=== PATIENT | male | born 1985 | race Hispanic/Latino ===

== ENCOUNTER 2021-08-22 18:35 | Observation (INO) | payer OTHER, SELFPAY ==
[2021-08-22] VITALS (10 sets, daily range): BP systolic 119–136; BP diastolic 72–82; PULSE 68–84; RESP 15–19; TEMP 36.4–37; O2SAT 96–100; BMI 28.2; BMI 28.6
--- NOTE | 2021-08-22 | DI.ECHO.S_ITS ---
[facility] +---------+ : : [address] : : : [place], [place] : : : : [id number] : : : : Phone: [phone]+ Echocardiogram Report + + :Name: PREM COTTON Study Date: 08/23/2021 Height: 74 in : :[facility] ReadingLocation: Weight: 220 lb : : Gender: Male BSA: 2.3 m2 : :: 1985 Age: 36 yrs BP: 136/78 mmHg: :Reason For Study: ATRIAL FIBRILLATION : :Ordering Physician: Kristyn OLSENformed By: Radha Cat : :Referring: ERNESTINE OLSEN : + + Interpretation Summary 1) Normal left ventricular thickness, size, wall motion, and systolic function (EF 55-60%). 2) Upper normal right ventricular size with normal function. 3) No significant valvular abnormalities. 4) No prior Echo available for comparison. Procedure: A two-dimensional transthoracic echocardiogram with color flow and Doppler was performed. The study quality was technically adequate. There is no prior echocardiogram noted for this patient. The patient was in sinus rhythm with heart rates between 59-68 bpm during the exam. Left Ventricle: The left ventricle is normal in size and wall thickness. The ejection fraction is estimated to be 55-60%. Left ventricular systolic function appears normal without focal wall motion abnormalities. Right Ventricle: The right ventricle is at the upper limits of normal in size. The right ventricular systolic function is normal. Atria: The left atrial size is normal. Right atrial size is normal. There is no Doppler evidence for an interatrial shunt. Mitral Valve: The mitral valve is normal in structure and function. There is trace mitral regurgitation. Aortic Valve: The aortic valve is trileaflet. The aortic valve opens well. There is no aortic valve stenosis. No aortic regurgitation is present. Tricuspid Valve: The tricuspid valve is normal in structure and function. No tricuspid regurgitation. Pulmonary artery pressures cannot be estimated because of the lack of a measurable TR jet velocity. Pulmonic Valve: The pulmonic valve is not well seen, but is grossly normal. There is no pulmonic valvular regurgitation. Great Vessels: The aortic root is normal size. The dimensions of the ascending aorta are normal. The inferior vena cava was not well visualized. Pericardium/ Pleura There is no pericardial effusion. There is no pleural effusion. MMode/2D Measurements & Calculations LVIDd: 4.9 cm LVOT diam: 2.5 cm LVIDs: 3.6 cm Ao root diam: 3.2 cm FS: 26.9 % asc Aorta Diam: 3.2 cm IVSd: 0.85 cm Ao Arch Diam (Prox Trans): 3.0 cm LVPWd: 0.71 cm LV mays. diameter/BSA (cm/m^2): 2.2 LV sys. diameter/BSA (cm/m^2): 1.6 LA A2 area: 19.2 cm2 RA long axis: 5.4 cm LA A4 area: 17.6 cm2 RA area: 15.8 cm2 LA length (vol): 5.4 cm RA vol: 39.6 ml LA vol: 53.0 ml RA : 17.5 ml/m2 LA vol index: 23.4 ml/m2 RVD1 (basal): 4.0 cm TAPSE: 2.0 cm Doppler Measurements & Calculations Ao V2 max: 98.9 cm/sec LVOT Max Naren: 82.6 cm/sec Ao V2 mean: 69.7 cm/sec LV V1 max P.7 mmHg Ao max P.9 mmHg LV V1 VTI: 15.9 cm Ao mean P.2 mmHg JANELLE(I,D): 3.6 cm2 Ao V2 VTI: 21.0 cm JANELLE(V,D): 4.0 cm2 sev ratio: 0.76 JANELLE indexed to BSA (cm^2/m^2): 1.6 MV E max naren: 64.7 cm/sec PA V2 max: 87.9 cm/sec MV A max naren: 44.1 cm/sec PA V2 mean: 61.8 cm/sec MV E/A: 1.5 PA mean P.7 mmHg Med Peak E' Naren: 8.7 cm/sec PA pr(Accel): 24.2 mmHg E/E' med: 7.5 Lat Peak E' Naren: 10.7 cm/sec E/E' lat: 6.0 E/e' average: 6.8 MV dec time: 0.20 sec SV(LVOT): 75.7 ml Reading Physician:09:33 AM
--- NOTE | 2021-08-22 18:42 | DI.RAD.S_ITS ---
PROCEDURE: XR CHEST 1V INDICATIONS: syncope, new onset AFib TECHNIQUE: One view of the chest was acquired. COMPARISON: None. FINDINGS: Surgical changes and devices: None. Lungs and pleura: No consolidation, pleural effusions or pneumothorax. Mediastinum: Mediastinal contours appear normal. Heart size is normal. Bones and chest wall: No suspicious bony lesions. Overlying soft tissues appear unremarkable. IMPRESSION: No acute cardiopulmonary abnormality. Dictated by: Jarett Jimenez M.D. on 08/22/2021 at 19:42 Approved by: Jarett Jimenez M.D. on 08/22/2021 at 19:42
--- NOTE | 2021-08-22 18:45 | PC.NURSE ---
pt was sitting in a chair when he felt a zamarripa of dizziness the dizziness increased in severity then the next thing the pt remembers is waking up on the floor with everyone standing around him, pt has never had this happen before and has not been sick or around anyone ill
--- NOTE | 2021-08-22 18:49 | ED_ITS ---
HPI - Chest Pain General Chief Complaint: Syncope Stated Complaint: syncope seizure Time Seen by Provider: 08/22/21 18:41 Source: patient Mode of arrival: EMS Limitations: no limitations History of Present Illness HPI narrative: 36M nonsmoker with noncontributory medical history presents with [facility] for evaluation of a syncopal episode just prior to arrival. He had been in his normal state of health and denies any new medications or dietary change. He was getting his hair cut when he started feeling a bit flushed and lightheaded, he asked for a glass of water and next thing he knew he woke up on the ground surrounded by his friends. He had no seizure-type activity, no shaking or twitching. He denies any recent trauma or injury and has had no fever or chills. He denies any recent nausea, vomiting or diarrhea. He has had no recent travel. He denies any history of the same. Medics on scene no an EKG demonstrating a rapid atrial fibrillation which had returned to normal sinus rhythm prior to his arrival. Related Data Home Medications Medication Instructions Recorded Confirmed No Known Home Medications 08/22/21 08/22/21 Allergies Allergy/AdvReac Type Severity Reaction Status Date / Time No Known Drug Allergies Allergy Verified 08/22/21 18:46 Review of Systems Review of Systems Narrative: GENERAL: Denies chills, fatigue, malaise, fever, sweats. HEENT: Denies sinus pain, ear pain, sore throat, difficulty swallowing, dizziness. RESPIRATORY: Denies dyspnea, cough, wheezing, hemoptysis, sputum. CARDIOVASCULAR: See HPI GASTROINTESTINAL: Denies nausea, vomiting, abdominal pain, diarrhea, c onstipation, melena. : Denies dysuria, frequency, incontinence, hematuria, urinary retention. MUSCULOSKELETAL: denies weakness, joint pain, or bony pain SKIN: Denies rash, skin lesions, or other NEUROLOGIC: Denies weakness, headache, numbness, change in speech, confusion, seizures, incoordination. PSYCHIATRIC: No concerning psychosocial issues. 12 point review of systems is negative except for those stated above Patient History Surgical History (Updated 08/22/21 @ 21:35 by SHAW Olmstead) No history of previous surgery Family History (Updated 08/22/21 @ 21:35 by SHAW Olmstead) Father Prostate cancer Social History household members: spouse Smoking Status: Never smoker Smoking Status: Never smoker alcohol intake frequency: holidays/special occasions only Substance Use Type: does not use Exam Narrative Exam Narrative: GENERAL: [36 year old patient appears stated age. Well-developed patient, in mild distress. HEAD: Atraumatic. Normocephalic. EYES: Pupils equal round and reactive. Extraocular motions intact. No scleral icterus. No injection or drainage. ENT: Nose without bleeding, purulent drainage. Throat without erythema, tonsillar hypertrophy or exudate. Airway patent. NECK: Trachea midline. Non tender CARDIOVASCULAR: Regular rate and rhythm without murmurs, gallops, or rubs. RESPIRATORY: Clear to auscultation. Breath sounds equal bilaterally. No wheezes, rales, or rhonchi. GASTROINTESTINAL: Abdomen soft, non-tender, nondistended. EXTREMITIES: No edema or joint tenderness. BACK: Nontender without deformity or crepitance. No flank tenderness. NEURO: AOx3. SKIN: No rash or erythema of visible areas Initial Vital Signs Initial Vital Signs: Vital Signs Temperature 97.6 F 08/22/21 18:42 Pulse Rate 74 08/22/21 18:42 Respiratory Rate 16 08/22/21 18:42 Blood Pressure 129/79 08/22/21 18:42 Pulse Oximetry 100 08/22/21 18:42 Course Orders Ordered: ED Orders 08/22/21 20:10 COVID19 - ADMIT (TEXTILE TECHNICAL OFFICER swab/PCR) Stat 08/22/21 22:15 Urine Drug Screen, Rapid Stat Acetaminophen (Acetaminophen 325 Mg Tablet) 650 mg PO Q6HR PRN PRN Reason: Fever/Mild Pain (1-3) Enoxaparin Sodium (Enoxaparin 40 Mg/0.4 Ml Syringe) 40 mg SUBCUT DAILY NAOMEI Metoprolol Succinate (Metoprolol Er 50 Mg Tablet) 12.5 mg PO DAILY NAOMIE Naloxone HCl (Naloxone 0.4 Mg/Ml Vial) 0.2 mg IV Q2MIN PRN PRN Reason: Opiate Reversal Ondansetron HCl (Ondansetron 4 Mg Odt) 4 mg PO Q8HR PRN PRN Reason: Nausea And Vomiting Discontinued Medications Aspirin (Aspirin 81 Mg Chew Tab) 324 mg PO NOW ONE Stop: 08/22/21 18:42 Last Admin: 08/22/21 19:04 Dose: 324 mg Documented by: ATAYLOR Sodium Chloride (Normal Saline 0.9%) 1,000 mls @ 150 mls/hr IV CONT NAOMIE Last Infusion: 08/22/21 21:29 Dose: 0 mls/hr Documented by: Admin: 08/22/21 19:04 Dose: 150 mls/hr Documented by: SYDNIEOR Metoprolol Succinate (Metoprolol Er 25 Mg Tablet) 25 mg PO NOW ONE Stop: 08/22/21 19:52 Last Admin: 08/22/21 20:08 Dose: 25 mg Documented by: ELAINE Consultations Consultation #1: Case discussed with on-call Cardiology. Given patient's age, new onset AFib and syncope associated with he recommends admission to the hospital, rate control with metoprolol 25 mg p.o., echocardiogram and a fall as well patient could be discharged tomorrow with follow-up Consultation #2: Hospitalist happy to accept Vital Signs Vital signs: Vital Signs - 8 hr 08/22/21 18:42 08/22/21 18:46 08/22/21 19:00 Temperature 97.6 F Pulse Rate 74 74 84 Respiratory Rate 16 15 16 Blood Pressure 129/79 119/72 Pulse Oximetry 100 100 100 MDM - Chest Pain Lab Data Result diagrams: 08/22/21 18:46 08/22/21 18:46 Labs: Lab Results 08/22/21 08/22/21 08/22/21 Range/Units 18:46 18:46 18:46 WBC 5.4 (4.5-11.0) X10^3/uL RBC 4.83 (4.5-5.9) X10^6/uL Hgb 14.4 (13.5-17.5) g/dL Hct 42.6 (41-53) % MCV 88.2 (80-100) fL MCH 29.8 (26-34) PG MCHC 33.7 (30-36) % RDW 12.6 (11.6-14.8) % Plt Count 256 (150-400) X10^3/uL Neut % (Auto) 56.1 (50-75) % Lymph % (Auto) 34.4 (25-40) % [place] % (Auto) 7.9 (3-14) % Eos % (Auto) 0.5 L (2-4) % Baso % (Auto) 1.1 (0-2) % Neut # (Auto) 3100 (0681-6150) /uL Lymph # (Auto) 1900 (9676-3782) /uL [place] # (Auto) 400 (0-900) /uL Eos # (Auto) 0 (0-450) /uL Baso # (Auto) 100 (0-100) /uL D-Dimer < 200 (<230) ng/mL Sodium (137-145) mmol/L Potassium (3.4-5.1) mmol/L Chloride (98-107) mmol/L Carbon Dioxide (22-32) mmol/L BUN (9-20) mg/dL Creatinine (0.66-1.25) mg/dL Estimated GFR (>60) mL/min BUN/Creatinine Ratio (6-22) Glucose (70-100) mg/dL Hemoglobin A1c (4.0-6.0) % Calcium (8.4-10.2) mg/dL Magnesium (1.6-2.3) mg/dL Total Bilirubin (0.2-1.3) mg/dL AST (17-59) IU/L ALT (<50) IU/L Alkaline Phosphatase (38-126) U/L Total Creatine Kinase (55-170) U/L CK-MB (CK-2) CK-MB (CK-2) Rel Index Troponin I (0.01-0.034) ng/mL NT-Pro-B Natriuret Pep 24 (<125) pg/mL Total Protein (6.3-8.2) g/dL Albumin (3.5-5.0) g/dL Globulin (1.7-4.1) g/dL Albumin/Globulin Ratio (1.0-2.8) Lipase (23-300) U/L TSH (0.47-4.68) uIU/mL Free T4 (0.78-2.19) ng/dL SARS-CoV-2 (PCR) (Negative) 08/22/21 08/22/21 08/22/21 Range/Units 18:46 18:46 18:46 WBC (4.5-11.0) X10^3/uL RBC (4.5-5.9) X10^6/uL Hgb (13.5-17.5) g/dL Hct (41-53) % MCV (80-100) fL MCH (26-34) PG MCHC (30-36) % RDW (11.6-14.8) % Plt Count (150-400) X10^3/uL Neut % (Auto) (50-75) % Lymph % (Auto) (25-40) % [place] % (Auto) (3-14) % Eos % (Auto) (2-4) % Baso % (Auto) (0-2) % Neut # (Auto) (3913-7870) /uL Lymph # (Auto) (1978-7553) /uL [place] # (Auto) (0-900) /uL Eos # (Auto) (0-450) /uL Baso # (Auto) (0-100) /uL D-Dimer (<230) ng/mL Sodium 139 (137-145) mmol/L Potassium 4.1 (3.4-5.1) mmol/L Chloride 103 (98-107) mmol/L Carbon Dioxide 27 (22-32) mmol/L BUN 11 (9-20) mg/dL Creatinine 0.95 (0.66-1.25) mg/dL Estimated GFR > 60.0 (>60) mL/min BUN/Creatinine Ratio 11.6 (6-22) Glucose 99 (70-100) mg/dL Hemoglobin A1c (4.0-6.0) % Calcium 9.8 (8.4-10.2) mg/dL Magnesium 1.9 (1.6-2.3) mg/dL Total Bilirubin 0.8 (0.2-1.3) mg/dL AST 33 (17-59) IU/L ALT 36 (<50) IU/L Alkaline Phosphatase 80 (38-126) U/L Total Creatine Kinase 87 (55-170) U/L CK-MB (CK-2) TNP CK-MB (CK-2) Rel Index TNP Troponin I < 0.012 (0.01-0.034) ng/mL NT-Pro-B Natriuret Pep (<125) pg/mL Total Protein 8.9 H (6.3-8.2) g/dL Albumin 4.8 (3.5-5.0) g/dL Globulin 4.1 (1.7-4.1) g/dL Albumin/Globulin Ratio 1.2 (1.0-2.8) Lipase 75 (23-300) U/L TSH 1.50 (0.47-4.68) uIU/mL Free T4 0.86 (0.78-2.19) ng/dL SARS-CoV-2 (PCR) (Negative) 08/22/21 08/22/21 Range/Units 18:46 20:10 WBC (4.5-11.0) X10^3/uL RBC (4.5-5.9) X10^6/uL Hgb (13.5-17.5) g/dL Hct (41-53) % MCV (80-100) fL MCH (26-34) PG MCHC (30-36) % RDW (11.6-14.8) % Plt Count (150-400) X10^3/uL Neut % (Auto) (50-75) % Lymph % (Auto) (25-40) % [place] % (Auto) (3-14) % Eos % (Auto) (2-4) % Baso % (Auto) (0-2) % Neut # (Auto) (8483-1598) /uL Lymph # (Auto) (2024-5623) /uL [place] # (Auto) (0-900) /uL Eos # (Auto) (0-450) /uL Baso # (Auto) (0-100) /uL D-Dimer (<230) ng/mL Sodium (137-145) mmol/L Potassium (3.4-5.1) mmol/L Chloride (98-107) mmol/L Carbon Dioxide (22-32) mmol/L BUN (9-20) mg/dL Creatinine (0.66-1.25) mg/dL Estimated GFR (>60) mL/min BUN/Creatinine Ratio (6-22) Glucose (70-100) mg/dL Hemoglobin A1c 5.5 (4.0-6.0) % Calcium (8.4-10.2) mg/dL Magnesium (1.6-2.3) mg/dL Total Bilirubin (0.2-1.3) mg/dL AST (17-59) IU/L ALT (<50) IU/L Alkaline Phosphatase (38-126) U/L Total Creatine Kinase (55-170) U/L CK-MB (CK-2) CK-MB (CK-2) Rel Index Troponin I (0.01-0.034) ng/mL NT-Pro-B Natriuret Pep (<125) pg/mL Total Protein (6.3-8.2) g/dL Albumin (3.5-5.0) g/dL Globulin (1.7-4.1) g/dL Albumin/Globulin Ratio (1.0-2.8) Lipase (23-300) U/L TSH (0.47-4.68) uIU/mL Free T4 (0.78-2.19) ng/dL SARS-CoV-2 (PCR) Negative (Negative) Discharge Plan Departure Patient Disposition: Admitted as Observation Clinical Impression: Atrial fibrillation, new onset, Syncope and collapse Admit Date/Time: 08/22/21 20:28 Admit Provider: Arin Caban
[2021-08-22 18:54] LABS: Add Manual Diff / Slide Review NO; Basophils Absolute Auto 100 /uL (0-100); Basophils Percent Auto 1.1 % (0-2); Eosinophils Absolute Auto 0 /uL (0-450); Eosinophils Percent Auto 0.5 % (2-4); Hematocrit 42.6 % (41-53); Hemoglobin 14.4 g/dL (13.5-17.5); Lymphocytes Absolute Auto 1900 /uL (1100-4500); Lymphocytes Percent Auto 34.4 % (25-40); Mean Corpuscular HGB Conc 33.7 % (30-36); Mean Corpuscular Hemoglobin 29.8 PG (26-34); Mean Corpuscular Volume 88.2 fL (80-100); Monocytes Absolute Auto 400 /uL (0-900); Monocytes Percent Auto 7.9 % (3-14); Neutrophils Absolute Auto 3100 /uL (1500-7000); Neutrophils Percent Auto 56.1 % (50-75); Platelet Count 256 X10^3/uL (150-400); Red Blood Cell Count 4.83 X10^6/uL (4.5-5.9); Red Cell Distribution Width 12.6 % (11.6-14.8); White Blood Cell Count 5.4 X10^3/uL (4.5-11.0)
[2021-08-22 19:04] LABS: D Dimer < 200 ng/mL (<230)
[2021-08-22] MEDS: ASPIRIN 81 MG CHEW TAB 324 MG PO (19:04)
[2021-08-22] MEDS: SODIUM CHLORIDE 0.9% 1,000 ML 150 ML IV (19:04)
[2021-08-22 19:07] LABS: Alanine Aminotransferase 36 IU/L (<50); Albumin 4.8 g/dL (3.5-5.0); Albumin Globulin Ratio 1.2 (1.0-2.8); Alkaline Phosphatase 80 U/L (38-126); Aspartate Aminotransferase 33 IU/L (17-59); BUN Creatinine Ratio 11.6 (6-22); Bilirubin Total 0.8 mg/dL (0.2-1.3); Blood Urea Nitrogen 11 mg/dL (9-20); Calcium 9.8 mg/dL (8.4-10.2); Carbon Dioxide 27 mmol/L (22-32); Chloride 103 mmol/L (98-107); Creatine Kinase 87 U/L (55-170); Estimated Glomerular Filt Rate > 60.0 mL/min (>60); Globulin 4.1 g/dL (1.7-4.1); Glucose 99 mg/dL (70-100); HEMOLYSIS 56 (0-50); Lipase 75 U/L (23-300); Sodium 139 mmol/L (137-145); Total Protein 8.9 g/dL (6.3-8.2)
[2021-08-22 19:08] LABS: Potassium 4.1 mmol/L (3.4-5.1)
[2021-08-22 19:16] LABS: NT-proBNP (BNP-Adult 18+) 24 pg/mL (<125)
[2021-08-22 19:20] LABS: Troponin I < 0.012 ng/mL (0.01-0.034)
[2021-08-22] MEDS: METOPROLOL ER 25 MG TABLET PO (20:08)
[2021-08-22 21:01] LABS: COVID19 - ADMIT (NP swab/PCR) Negative (Negative)
--- NOTE | 2021-08-22 21:34 | P.HP_ITS ---
History of Present Illness History of Present Illness Date Patient Seen: 08/22/21 Time Patient Seen: 21:34 Chief complaint: syncope seizure Narrative: Aquilino Ortiz is a 36-year-old male member of the [employer] with no significant health issues was sitting in a stanford chair getting his hair cut when he had a witnessed syncopal episode, fall and possible seizure. He states that he was sitting hunched over while they were trimming the back of his head and when he s traightened up he felt dizzy. He asks the stanford for a drink of water and apparently fell over, finding himself on the floor in asking a room anyone happened. His was in the room stated that his eyes rolled back and that he made little jerking movements for about 3 seconds. Patient denies chest pain, shortness of breath, headache, nasal congestion, visual changes, nausea or vomiting, changes in urination or bowel movements, paresthesias of his upper lower extremities. Denies a recent history of long distance surface or air travel. In the emergency department upon hooking him up to the monitor he was noted to be in atrial fibrillation. Chest x-ray was normal. He is afebrile, blood pressure 136/78, heart rate 70, respiratory rate 16, oxygen saturation of 100% on room air he weighs 101.3 kg with a BMI of 28.6. Both CBC and chemistries are unremarkable, TSH and free T4 were within normal limits, tox screen was negative and COVID-19 PCR was negative. Patient History Surgical History (Updated 08/22/21 @ 21:35 by SHAW Olmstead) No history of previous surgery Family & Social History Family History (Updated 08/22/21 @ 21:35 by SHAW Olmstead) Father Prostate cancer Social History: household members spouse Prior Living Arrangements House Safety & Behavioral: Feels Safe in Current Yes Environment Been Physically Hurt or No Threatened By a Person Suicidal Ideation Description None Suicide Plan Description No Plan Tobacco & Substance use: Smoking Status Never smoker alcohol intake frequency holiday/special occasion Substance Use Type does not use Meds Home Medications and Allergies Home Medications Medication Instructions Recorded Confirmed Type No Known Home Medications 08/22/21 08/22/21 History Allergies Allergy/AdvReac Type Severity Reaction Status Date / Time No Known Drug Allergies Allergy Verified 08/22/21 18:46 Review of Systems Review of Systems ROS: Yes All systems reviewed with the patient and are negative except as otherwise documented Exam Vital Signs (past 8 hours): - 08/22/21 18:42 08/22/21 18:46 08/22/21 19:00 Temperature 97.6 F Pulse Rate 74 74 84 Respiratory Rate 16 15 16 Blood Pressure 129/79 119/72 Pulse Oximetry 100 100 100 08/22/21 19:30 08/22/21 20:00 08/22/21 20:08 Temperature Pulse Rate 70 74 75 Respiratory Rate 17 19 Blood Pressure 128/82 124/77 124/77 Pulse Oximetry 100 100 08/22/21 20:30 08/22/21 20:42 08/22/21 21:00 Temperature Pulse Rate 70 68 70 Respiratory Rate 17 16 Blood Pressure 121/76 121/76 136/78 Pulse Oximetry 100 100 Oxygen Delivery Method Room Air Narrative Exam Narrative: Gen: Alert, oriented, well-developed 36 y.o. and male, NAD HEENT: normocephalic, atraumatic, conjunctiva clear, sclera non-icteric, oral mucosa pink and moist Neck: supple, full ROM, no JVD, trachea is midline Resp: Lungs CTA, non-labored breathing CV: RRR, no murmur or rubs Abd: soft, non-tender, normoactive BTs Skin: no lesions or rashes, dry and intact Neuro: Alert and oriented X 4 w/no focal deficits. Speech clear and coherent. Extremities: moves all 4 extremities, is ambulatory, negative Deanne?s sign Psyche: normal mood and affect. Objective Labs Result Diagrams: 08/22/21 18:46 08/22/21 18:46 Labs: Laboratory Results - last 24 hr 08/22/21 08/22/21 08/22/21 18:46 18:46 18:46 WBC 5.4 RBC 4.83 Hgb 14.4 Hct 42.6 MCV 88.2 MCH 29.8 MCHC 33.7 RDW 12.6 Plt Count 256 Neut % (Auto) 56.1 Lymph % (Auto) 34.4 [place] % (Auto) 7.9 Eos % (Auto) 0.5 L Baso % (Auto) 1.1 Neut # (Auto) 3100 Lymph # (Auto) 1900 [place] # (Auto) 400 Eos # (Auto) 0 Baso # (Auto) 100 D-Dimer < 200 Sodium Potassium Chloride Carbon Dioxide BUN Creatinine Estimated GFR BUN/Creatinine Ratio Glucose Calcium Total Bilirubin AST ALT Alkaline Phosphatase Total Creatine Kinase CK-MB (CK-2) CK-MB (CK-2) Rel Index Troponin I NT-Pro-B Natriuret Pep 24 Total Protein Albumin Globulin Albumin/Globulin Ratio Lipase SARS-CoV-2 (PCR) 08/22/21 08/22/21 18:46 20:10 WBC RBC Hgb Hct MCV MCH MCHC RDW Plt Count Neut % (Auto) Lymph % (Auto) [place] % (Auto) Eos % (Auto) Baso % (Auto) Neut # (Auto) Lymph # (Auto) [place] # (Auto) Eos # (Auto) Baso # (Auto) D-Dimer Sodium 139 Potassium 4.1 Chloride 103 Carbon Dioxide 27 BUN 11 Creatinine 0.95 Estimated GFR > 60.0 BUN/Creatinine Ratio 11.6 Glucose 99 Calcium 9.8 Total Bilirubin 0.8 AST 33 ALT 36 Alkaline Phosphatase 80 Total Creatine Kinase 87 CK-MB (CK-2) TNP CK-MB (CK-2) Rel Index TNP Troponin I < 0.012 NT-Pro-B Natriuret Pep Total Protein 8.9 H Albumin 4.8 Globulin 4.1 Albumin/Globulin Ratio 1.2 Lipase 75 SARS-CoV-2 (PCR) Negative Assessment & Plan Assessment & Plan narrative: Aquilino Ortiz a 36-year-old male with no significant health history will be observed overnight and monitored for atrial fibrillation. I suspect this may have been a vasovagal response to sitting up after having his head down but he needs to be further evaluated to make sure he does not have an underlying cardiac issue. 1. Syncopal episode and possible seizure * Patient to be observed overnight on a major gifts officer * He is accompanied by his is in the room * Patient appears to be alert and oriented and off that he will not be compulsive about getting out of bed without assistance. 2. Episode of atrial fibrillation, present on admission * He will have a troponin drawn at 5:00 a.m. * Complete echocardiogram 3. Suspected vasovagal response * Orthostatic vitals Q 8 VTE Prophylaxis: Wells risk score 0 X Enoxaparin 40 mg subQ once daily Bilateral SCDs Patient is placed into observation as his stay is not expected to exceed 2 midnights. FEN: IV fluids: Saline lock, diet: Heart healthy, labs: CBC, C/BMP, liver enzymes, Mag, troponin Consultants None Dispo: probable discharge to home Code status: Full Code as discussed with the patient who identifies Bc, his as his surrogate and POA. [X] I have utilized all available immediate resources to obtain, update, or review of the patient's current medications COVID-19 COVID-19 status: Negative Result date/Date tested (Pos, Neg/Pending): 08/22/21 Time Spent With Patient Critical Care time: I spent a total of [] minutes of critical care time on this patient's care today; this time is exclusive of procedural time. Scores Wells' Criteria for PE Clinical signs and symptoms of DVT: No PE is #1 Dx or equally likely: No Heart rate > 100: No Immobilization at least 3 days or surg in previous 4 weeks: No History of PE or DVT: No Hemoptysis: No Malignancy w/Treatment within 6 months or palliative: No Wells' PE Score total: 0 Quality VTE Deep Vein Thrombosis/Pulmonary Embolism Present on Admission: No MIPS - Admit I confirm the patient?s Advance Care Plan is present, Code status is documented, Surrogate decision maker is in patient?s record [If Yes, STOP here]: Yes MIPS - DC The patient has current or prior documentation of left ventricular ejection fraction (LVEF) less than 40%, or moderate or severely depressed left ventricular systolic function.: No
[2021-08-22 21:40] LABS: Magnesium 1.9 mg/dL (1.6-2.3)
[2021-08-22 21:44] LABS: Hemoglobin A1C% w Est Avg Glu 5.5 % (4.0-6.0)
[2021-08-22 22:35] LABS: UR Morphine/Opiate cutoff 300 Negative (Negative); Ur Creatinine 20 (Normal); Ur Specific Gravity 1.015 (Normal); Urine Amphetamines Negative (Negative); Urine Barbiturates Negative (Negative); Urine Benzodiazepines Negative (Negative); Urine Cocaine Negative (Negative); Urine MDMA Negative (Negative); Urine Methadone Negative (Negative); Urine Methamphetamines Negative (Negative); Urine Oxycodone Negative (Negative); Urine Phencyclidine Negative (Negative); Urine Tetrahydrocannabinol Negative (Negative); Urine Tricyclic Antidepressant Negative (Negative); Urine pH 5 (Normal)
[2021-08-23 00:34] LABS: Free T4, Direct Thyroxine 0.86 ng/dL (0.78-2.19)
[2021-08-23 01:09] LABS: Troponin I < 0.012 ng/mL (0.01-0.034)
[2021-08-23 04:47] VITALS: BP 118/64; BP 118/77; BP 121/82; PULSE 72; PULSE 74; PULSE 84; RESP 12; TEMP 37.3; O2SAT 100
[2021-08-23 05:10] LABS: Add Manual Diff / Slide Review NO; Basophils Absolute Auto 100 /uL (0-100); Basophils Percent Auto 1.3 % (0-2); Eosinophils Absolute Auto 100 /uL (0-450); Eosinophils Percent Auto 1.7 % (2-4); Hematocrit 39.1 % (41-53); Hemoglobin 13.4 g/dL (13.5-17.5); Lymphocytes Absolute Auto 2900 /uL (1100-4500); Lymphocytes Percent Auto 43.3 % (25-40); Mean Corpuscular HGB Conc 34.2 % (30-36); Mean Corpuscular Volume 87.6 fL (80-100); Monocytes Absolute Auto 500 /uL (0-900); Monocytes Percent Auto 7.9 % (3-14); Neutrophils Absolute Auto 3100 /uL (1500-7000); Neutrophils Percent Auto 45.8 % (50-75); Platelet Count 250 X10^3/uL (150-400); Red Blood Cell Count 4.46 X10^6/uL (4.5-5.9); Red Cell Distribution Width 12.5 % (11.6-14.8); White Blood Cell Count 6.7 X10^3/uL (4.5-11.0)
[2021-08-23 05:15] LABS: Creatine Kinase 70 U/L (55-170)
[2021-08-23 05:21] LABS: BUN Creatinine Ratio 14.9 (6-22); Blood Urea Nitrogen 13 mg/dL (9-20); Calcium 9.5 mg/dL (8.4-10.2); Carbon Dioxide 28 mmol/L (22-32); Chloride 105 mmol/L (98-107); Cholesterol 237 mg/dL (140-199); Estimated Glomerular Filt Rate > 60.0 mL/min (>60); Glucose 112 mg/dL (70-100); HDL Cholesterol 39 mg/dL (40-60); HEMOLYSIS < 15 (0-50); LDL Cholesterol Calculated 172 mg/dL (<100); Potassium 3.6 mmol/L (3.4-5.1); Sodium 140 mmol/L (137-145); Triglycerides 131 mg/dL (35-150)
[2021-08-23 05:28] LABS: Troponin I < 0.012 ng/mL (0.01-0.034)
[2021-08-23 08:04] VITALS: O2SAT 98
[2021-08-23] MEDS: ENOXAPARIN 40 MG/0.4 ML SYRINGE SUBCUT (08:41)
[2021-08-23] MEDS: ASPIRIN EC 81 MG TABLET PO (08:41)
[2021-08-23 08:51] VITALS: PULSE 75
[2021-08-23] MEDS: METOPROLOL ER 50 MG TABLET 12.5 MG PO (08:51)
[2021-08-23 09:00] VITALS: BP 138/85; PULSE 78; RESP 21; TEMP 36.2; O2SAT 100
[2021-08-23 10:03] VITALS: PULSE 74
--- NOTE | 2021-08-23 10:40 | PM.DS.1 ---
History of Present Illness History of Present Illness Date Patient Seen: 08/23/21 Time Patient Seen: 10:40 Chief complaint: syncope seizure Narrative: Aquilino Ortiz is a 36-year-old male member of the [employer] with no significant health issues was sitting in a [employer]anford chair getting his hair cut when he had a witnessed syncopal episode, fall and possible seizure.? He states that he was sitting hunched over while they were trimming the back of his head and when he straightened up he felt dizzy.? He asks the [place]ford for a drink of water and apparently fell over, finding himself on the floor in asking a room anyone happened.? His was in the room stated that his eyes rolled back and that he made little jerking movements for about 3 seconds.? Patient denies chest pain, shortness of breath, headache, nasal congestion, visual changes, nausea or vomiting, changes in urination or bowel movements, paresthesias of his upper lower extremities. Denies a recent history of long distance surface or air travel. In the emergency department upon hooking him up to the monitor he was noted to be in atrial fibrillation.? Chest x-ray was normal.? He is afebrile, blood pressure 136/78, heart rate 70, respiratory rate 16, oxygen saturation of 100% on room air he weighs 101.3 kg with a BMI of 28.6.? Both CBC and chemistries are unremarkable, TSH and free T4 were within normal limits, tox screen was negative and COVID-19 PCR was negative. Discharge Providers Provider Date of admission: 08/22/21 20:28 Discharge Date: 08/23/21 Discharge provider: Ida Arauz MD Summary Hospital Course Discharge Diagnosis: 1. Syncope 2. Paroxysmal atrial fibrillation 3. Hyperlipidemia Hospital Course: Patient was admitted to the hospital following a syncopal event. He states he was in the stanford chair bending forward when he felt lightheaded. The patient passed out. He has had prior episodes where he has felt like he is going to pass out typically when he is on the toilet having a BM. He has had no history of palpitations, and no history of chest pain. The patient is without symptoms today. Lightheadedness or dizziness. He did undergo cardiac echo which showed an ejection fraction of 55 to 60%, no wall motion abnormalities, and no valvular abnormalities. The patient had orthostatics vital signs and is not orthostatic. Exam Vital Signs (past 8 hours): - 08/23/21 04:47 08/23/21 08:04 08/23/21 08:51 Temperature 99.1 F Pulse Rate 72 75 Pulse Rate [Orthostatic Lying] 74 Pulse Rate [Orthostatic Sitting] 74 Pulse Rate [Orthostatic Standing] 84 Respiratory Rate 12 Blood Pressure 118/64 Blood Pressure [Orthostatic Lying] 118/64 Blood Pressure [Orthostatic Sitting] 118/77 Blood Pressure [Orthostatic Standing] 121/82 Pulse Oximetry 100 98 08/23/21 09:00 08/23/21 10:03 Temperature 97.1 F L Pulse Rate 78 74 Pulse Rate [Orthostatic Lying] Pulse Rate [Orthostatic Sitting] Pulse Rate [Orthostatic Standing] Respiratory Rate 21 Blood Pressure 138/85 Blood Pressure [Orthostatic Lying] Blood Pressure [Orthostatic Sitting] Blood Pressure [Orthostatic Standing] Pulse Oximetry 100 Oxygen Delivery Method Room Air Oxygen Flow Rate 0 Narrative Exam Narrative: Pleasant gentleman resting comfortably in no obvious distress Resp Other: Lungs clear to auscultation Cardio Other: Cardiac exam: Regular rate rhythm normal S1-S2 GI Other: Abdomen soft and nontender Extrem Other: Extremity no edema Objective ECG Impression: EKG shows sinus rhythm, no ST T wave abnormality Labs Result Diagrams: 08/23/21 04:50 08/23/21 04:50 Labs: Laboratory Results - last 24 hr 08/22/21 08/22/21 08/22/21 18:46 18:46 18:46 WBC 5.4 RBC 4.83 Hgb 14.4 Hct 42.6 MCV 88.2 MCH 29.8 MCHC 33.7 RDW 12.6 Plt Count 256 Neut % (Auto) 56.1 Lymph % (Auto) 34.4 [place] % (Auto) 7.9 Eos % (Auto) 0.5 L Baso % (Auto) 1.1 Neut # (Auto) 3100 Lymph # (Auto) 1900 [place] # (Auto) 400 Eos # (Auto) 0 Baso # (Auto) 100 D-Dimer < 200 Sodium Potassium Chloride Carbon Dioxide BUN Creatinine Estimated GFR BUN/Creatinine Ratio Glucose Hemoglobin A1c Calcium Magnesium Total Bilirubin AST ALT Alkaline Phosphatase Total Creatine Kinase CK-MB (CK-2) CK-MB (CK-2) Rel Index Troponin I NT-Pro-B Natriuret Pep 24 Total Protein Albumin Globulin Albumin/Globulin Ratio Triglycerides Cholesterol LDL Cholesterol, Calc HDL Cholesterol Lipase TSH Free T4 U Opiates 300ng/mL cut Ur Oxycodone Screen Urine Methadone Screen Ur Barbiturates Screen U Tricyclic Antidepress Ur Phencyclidine Scrn Ur Amphetamines Screen U Methamphetamines Scrn Ur MDMA Scrn (Ecstasy) U Benzodiazepines Scrn Urine Cocaine Screen U Marijuana (THC) Screen SARS-CoV-2 (PCR) 08/22/21 08/22/21 08/22/21 18:46 18:46 18:46 WBC RBC Hgb Hct MCV MCH MCHC RDW Plt Count Neut % (Auto) Lymph % (Auto) [place] % (Auto) Eos % (Auto) Baso % (Auto) Neut # (Auto) Lymph # (Auto) [place] # (Auto) Eos # (Auto) Baso # (Auto) D-Dimer Sodium 139 Potassium 4.1 Chloride 103 Carbon Dioxide 27 BUN 11 Creatinine 0.95 Estimated GFR > 60.0 BUN/Creatinine Ratio 11.6 Glucose 99 Hemoglobin A1c Calcium 9.8 Magnesium 1.9 Total Bilirubin 0.8 AST 33 ALT 36 Alkaline Phosphatase 80 Total Creatine Kinase 87 CK-MB (CK-2) TNP CK-MB (CK-2) Rel Index TNP Troponin I < 0.012 NT-Pro-B Natriuret Pep Total Protein 8.9 H Albumin 4.8 Globulin 4.1 Albumin/Globulin Ratio 1.2 Triglycerides Cholesterol LDL Cholesterol, Calc HDL Cholesterol Lipase 75 TSH 1.50 Free T4 0.86 U Opiates 300ng/mL cut Ur Oxycodone Screen Urine Methadone Screen Ur Barbiturates Screen U Tricyclic Antidepress Ur Phencyclidine Scrn Ur Amphetamines Screen U Methamphetamines Scrn Ur MDMA Scrn (Ecstasy) U Benzodiazepines Scrn Urine Cocaine Screen U Marijuana (THC) Screen SARS-CoV-2 (PCR) 08/22/21 08/22/21 08/22/21 18:46 20:10 22:15 WBC RBC Hgb Hct MCV MCH MCHC RDW Plt Count Neut % (Auto) Lymph % (Auto) [place] % (Auto) Eos % (Auto) Baso % (Auto) Neut # (Auto) Lymph # (Auto) [place] # (Auto) Eos # (Auto) Baso # (Auto) D-Dimer Sodium Potassium Chloride Carbon Dioxide BUN Creatinine Estimated GFR BUN/Creatinine Ratio Glucose Hemoglobin A1c 5.5 Calcium Magnesium Total Bilirubin AST ALT Alkaline Phosphatase Total Creatine Kinase CK-MB (CK-2) CK-MB (CK-2) Rel Index Troponin I NT-Pro-B Natriuret Pep Total Protein Albumin Globulin Albumin/Globulin Ratio Triglycerides Cholesterol LDL Cholesterol, Calc HDL Cholesterol Lipase TSH Free T4 U Opiates 300ng/mL cut Negative Ur Oxycodone Screen Negative Urine Methadone Screen Negative Ur Barbiturates Screen Negative U Tricyclic Antidepress Negative Ur Phencyclidine Scrn Negative Ur Amphetamines Screen Negative U Methamphetamines Scrn Negative Ur MDMA Scrn (Ecstasy) Negative U Benzodiazepines Scrn Negative Urine Cocaine Screen Negative U Marijuana (THC) Screen Negative SARS-CoV-2 (PCR) Negative 08/23/21 08/23/21 08/23/21 00:40 04:50 04:50 WBC 6.7 RBC 4.46 L Hgb 13.4 L Hct 39.1 L MCV 87.6 MCH 30.0 MCHC 34.2 RDW 12.5 Plt Count 250 Neut % (Auto) 45.8 L Lymph % (Auto) 43.3 H [place] % (Auto) 7.9 Eos % (Auto) 1.7 L Baso % (Auto) 1.3 Neut # (Auto) 3100 Lymph # (Auto) 2900 [place] # (Auto) 500 Eos # (Auto) 100 Baso # (Auto) 100 D-Dimer Sodium 140 Potassium 3.6 Chloride 105 Carbon Dioxide 28 BUN 13 Creatinine 0.87 Estimated GFR > 60.0 BUN/Creatinine Ratio 14.9 Glucose 112 H Hemoglobin A1c Calcium 9.5 Magnesium 2.0 Total Bilirubin AST ALT Alkaline Phosphatase Total Creatine Kinase CK-MB (CK-2) CK-MB (CK-2) Rel Index Troponin I < 0.012 NT-Pro-B Natriuret Pep Total Protein Albumin Globulin Albumin/Globulin Ratio Triglycerides 131 Cholesterol 237 H LDL Cholesterol, Calc 172 H HDL Cholesterol 39 L Lipase TSH Free T4 U Opiates 300ng/mL cut Ur Oxycodone Screen Urine Methadone Screen Ur Barbiturates Screen U Tricyclic Antidepress Ur Phencyclidine Scrn Ur Amphetamines Screen U Methamphetamines Scrn Ur MDMA Scrn (Ecstasy) U Benzodiazepines Scrn Urine Cocaine Screen U Marijuana (THC) Screen SARS-CoV-2 (PCR) 08/23/21 04:50 WBC RBC Hgb Hct MCV MCH MCHC RDW Plt Count Neut % (Auto) Lymph % (Auto) [place] % (Auto) Eos % (Auto) Baso % (Auto) Neut # (Auto) Lymph # (Auto) [place] # (Auto) Eos # (Auto) Baso # (Auto) D-Dimer Sodium Potassium Chloride Carbon Dioxide BUN Creatinine Estimated GFR BUN/Creatinine Ratio Glucose Hemoglobin A1c Calcium Magnesium Total Bilirubin AST ALT Alkaline Phosphatase Total Creatine Kinase 70 CK-MB (CK-2) TNP CK-MB (CK-2) Rel Index TNP Troponin I < 0.012 NT-Pro-B Natriuret Pep Total Protein Albumin Globulin Albumin/Globulin Ratio Triglycerides Cholesterol LDL Cholesterol, Calc HDL Cholesterol Lipase TSH Free T4 U Opiates 300ng/mL cut Ur Oxycodone Screen Urine Methadone Screen Ur Barbiturates Screen U Tricyclic Antidepress Ur Phencyclidine Scrn Ur Amphetamines Screen U Methamphetamines Scrn Ur MDMA Scrn (Ecstasy) U Benzodiazepines Scrn Urine Cocaine Screen U Marijuana (THC) Screen SARS-CoV-2 (PCR) PFSH Surgical History (Updated 08/22/21 @ 21:35 by SHAW Olmstead) No history of previous surgery Family History (Updated 08/22/21 @ 21:35 by SHAW Olmstead) Father Prostate cancer Social History household members: spouse Smoking Status: Never smoker Discharge Assessment & Plan Assessment and Plan Assessment: 1. Syncope 2. Paroxsymal Atrial Fibrillation 3. Hyperlipidemia Plan of Treatment: Discharge home Medications as prescribed Follow up with PCP for outpatient Zio patch Discharge Plan Discharge Plan Patient Disposition: Home Provider Discharge Comment: Needs follow up with PCP for outpatient zio patch Discharge orders & Medications Prescriptions: New aspirin 81 mg Tablet,Delayed Release (Dr/Ec) 81 mg PO DAILY Qty: 30 0RF atorvastatin 20 mg tablet 20 mg PO BEDTIME Qty: 30 0RF metoprolol succinate 50 mg Tablet Extended Release 24 Hr 12.5 mg PO DAILY Qty: 30 0RF No Action No Known Home Medications 0RF Discharge Health Status Multidrug resistant organism: No MDRO Diet/Activity/Treatments Diet: Low-sodium and Low-cholesterol Activity: as tolerated Visit Report/Discharge Packet Instructions: Atrial Fibrillation, DI for Atrial Fibrillation Discharge Data Attending Provider: Arin Caban VTE Deep Vein Thrombosis/Pulmonary Embolism Present on Admission: No
--- NOTE | 2021-08-23 11:12 | PC.NURSE ---
Day shift: Paperwork signed and all questions answered. Has all personal belongings. Was tele NSR today. Has talked with and Manjit in pharmacy. His spouse in room for teachings. Encouraged to take new meds as directed and to f/u with his PCP this week. Taken to car via WC by RETAIL MERCHANDISING SPECIALIST at approx [phone].
--- NOTE | 2021-08-23 11:59 | CM.DANOTE ---
DCP/Reviewed chart. Patient is a 36yrold male admitted to [facility] after syncopal event. PCP is at [facility]. Primary payor is 1)Marvin Garcia. MEDICAL CODING INSTRUCTOR met with patient and spouse at bedside explained role. At this time patient is expected to d/c today with no anticipated needs. Patient completely I with ADL's. P: Home today. KJS Discharge Planning/Care Management CM Discharge Assessment Start: 08/23/21 11:52 Freq: Status: Active Protocol: Document 08/23/21 11:53 KJS (Rec: 08/23/21 11:59 KJS [id number]) Discharge Planning Assessment Assigned Staff Genetic Counselor ERAN Martin Contact Information Bc Ortiz (spouse) ph# [phone] Advance Directives? No History Provided By Patient,Significant Other, Medical Record Prior Living Arrangements House Household Members spouse,children Type of transporation used prior to Drives own vehicle admit Independent with ADL's Yes Is patient alert and oriented? Yes Barriers to Discharge No Discharge Plan Home Transportation Arrangement Family to provide transport. Referrals Initiated None needed Review Status In Process Next Review Type Continued Stay Review
== END 2021-08-23 11:14 | disposition home or self-care (01) ==
LOC: ED 20:08 → AC 20:31
PROVIDERS: Admitting Provider Nurse Practitioner Family; Emergency Provider Emergency Medicine; Referring Provider Emergency Medicine; Visit Provider Nurse Practitioner Family
DX: R55 Syncope and collapse (principal); I48.0 Paroxysmal atrial fibrillation; E78.5 Hyperlipidemia, unspecified; Z20.822 Contact with and (suspected) exposure to COVID-19
CPT/HCPCS: 36415; 71045; 80048; 80053; 80061; 80305; 82550; 83036; 83690; 83735; 83880; 84439; 84443; 84484; 85025; 85379; 87635; 93005; 93010; 93306; 96360; 96361; 96372; 99284; C9803; G0378; J1650